=== PATIENT | male | born 1950 | race African-American/Black ===

== ENCOUNTER 2020-07-13 10:12 | Inpatient (IN) ==
[2020-07-13] MEDS ORDERED: Dexamethasone IV 4 MG/ML VIAL 1 ml VIAL IV SLOW PU ONE (10:43)
[2020-07-13] MEDS ORDERED: Famotidine IV 10 MG/ML 2 ml VIAL (20 mg) IV SLOW PU ONE (10:44)
[2020-07-13] MEDS ORDERED: diPHENhydraMINE IV 50 MG/ML 1 ml VIAL (BENADRYL) SLOW PUSH ONE (10:44)
[2020-07-13 11:13] LABS: ABS Basophils 0.1 10^3/ul (0-0.2); ABS Eosinophils 0.1 10^3/ul (0-0.6); ABS Lymphocytes 0.8 10^3/ul (1.0-4.8); ABS Monocytes 0.4 10^3/ul (0-0.8); ABS Neutrophils 4.2 10^3/ul (1.5-7.7); Eosinophil % 1.4 %; Hematocrit 36 % (42-52); Hemoglobin 11.4 g/dL (14.0-18.0); Lymphocyte % 14.3 %; Mean Corpuscular HGB Conc 32 g/dL (31-36); Mean Corpuscular Hemoglobin 21 pg (27-31); Mean Corpuscular Volume 67 fL (80-94); Mean Platelet Volume 8.5 fL (7.4-10.4); Nucleated Red Blood Cells % 0.1; Platelet Count 201 10^3/uL (150-450); Red Blood Count 5.44 10^6 /uL (4.18-5.48); Red Cell Distribution Width 19 % (10-15); White Blood Count 5.5 10^3/uL (3.5-10.8)
[2020-07-13 11:23] LABS: Albumin 4.4 g/dL (3.2-5.2); Albumin/Globulin Ratio 1.6 (1-3); Calcium 9.3 mg/dL (8.6-10.3); EGFR African American 94.8 (>60); EGFR Non-African American 78.4 (>60); Globulin 2.8 g/dL (2-4); Potassium 3.1 mmol/L (3.5-5.0); Total Bilirubin 0.6 mg/dL (0.2-1.0); Total Protein 7.2 g/dL (6.4-8.9)
[2020-07-13] MEDS: diPHENhydraMINE IV 50 MG/ML 1 ml VIAL (BENADRYL) IV SCH ×2 (12:34→17:05)
[2020-07-13] MEDS: methylPREDNISolone 125 mg 2 ML VIAL IV SCH ×2 (12:34→17:05)
[2020-07-13] MEDS: KCL 20 MEQ/100 ML IVPREMIX 20 MEQ/100 ML BAG IV SCH ×2 (12:40→15:12)
[2020-07-13] MEDS ORDERED: Heparin 5000 UNITS/ML 1 mL VIAL SUBCUT ONE (15:47)
[2020-07-13] MEDS: Heparin 5000 UNITS/ML 1 mL VIAL SUBCUT SCH ×2 (17:06→22:11)
[2020-07-13] MEDS ORDERED: Labetalol IV 5 MG/ML 20 ml VIAL IV PUSH PRN (19:54)
[2020-07-13] MEDS ORDERED: Metoprolol Tartrate 5 mg VIAL 5 ml VIAL (1 mg/ml) IV PRN ×2 (21:44→22:18)
[2020-07-13] MEDS: Famotidine IV 10 MG/ML 2 ml VIAL (20 mg) IV SLOW PU SCH (22:10)
[2020-07-14] MEDS: methylPREDNISolone 125 mg 2 ML VIAL IV SCH ×5 (00:33→23:53)
[2020-07-14] MEDS: diPHENhydraMINE IV 50 MG/ML 1 ml VIAL (BENADRYL) IV SCH ×3 (00:34→11:20)
[2020-07-14 02:24] LABS: Hepatitis C Antibody Negative (Negative)
[2020-07-14 05:08] LABS: Hematocrit 37 % (42-52); Hemoglobin 11.5 g/dL (14.0-18.0); Mean Corpuscular HGB Conc 31 g/dL (31-36); Mean Corpuscular Hemoglobin 21 pg (27-31); Mean Corpuscular Volume 67 fL (80-94); Mean Platelet Volume 8.8 fL (7.4-10.4); Nucleated Red Blood Cells % 0.4; Platelet Count 199 10^3/uL (150-450); Red Blood Count 5.46 10^6 /uL (4.18-5.48); Red Cell Distribution Width 19 % (10-15); White Blood Count 5.7 10^3/uL (3.5-10.8)
[2020-07-14 05:28] LABS: Calcium 8.9 mg/dL (8.6-10.3); EGFR Non-African American 79.3 (>60); Potassium 3.6 mmol/L (3.5-5.0)
[2020-07-14] MEDS ORDERED: Potassium Chlor 20 meq TAB.ER PO ONE (05:31)
[2020-07-14] MEDS: Heparin 5000 UNITS/ML 1 mL VIAL SUBCUT SCH ×3 (05:46→21:36)
[2020-07-14] MEDS: KCL 10 MEQ/50 ML IVPREMIX 10 MEQ/50 ML BAG IV SCH ×4 (05:46→13:15)
[2020-07-14 05:49] LABS: Polychromasia 1+; Tear Drop Cells 1+
[2020-07-14] MEDS: Famotidine IV 10 MG/ML 2 ml VIAL (20 mg) IV SLOW PU SCH ×2 (07:54→21:36)
[2020-07-14] MEDS ORDERED: KCL 10 MEQ/50 ML IVPREMIX 10 MEQ/50 ML BAG ONE (13:14)
[2020-07-14] MEDS ORDERED: diPHENhydraMINE IV 50 MG/ML 1 ml VIAL (BENADRYL) IV ONE (21:00)
[2020-07-15] MEDS: methylPREDNISolone 125 mg 2 ML VIAL IV SCH (05:00)
[2020-07-15] MEDS: Heparin 5000 UNITS/ML 1 mL VIAL SUBCUT SCH ×2 (05:01→14:24)
[2020-07-15 05:16] LABS: Hematocrit 37 % (42-52); Hemoglobin 11.4 g/dL (14.0-18.0); Mean Corpuscular HGB Conc 31 g/dL (31-36); Mean Corpuscular Hemoglobin 21 pg (27-31); Mean Corpuscular Volume 68 fL (80-94); Mean Platelet Volume 8.9 fL (7.4-10.4); Platelet Count 196 10^3/uL (150-450); Red Blood Count 5.36 10^6 /uL (4.18-5.48); Red Cell Distribution Width 19 % (10-15); White Blood Count 9.1 10^3/uL (3.5-10.8)
[2020-07-15 05:33] LABS: Calcium 8.8 mg/dL (8.6-10.3); EGFR African American 99.7 (>60); EGFR Non-African American 82.4 (>60); Potassium 4.3 mmol/L (3.5-5.0)
[2020-07-15 06:06] LABS: Microcytosis 2+; Polychromasia 1+
[2020-07-15 06:10] LABS: ABS Neutrophils 8.3 10^3/ul (1.5-7.7)
[2020-07-15] MEDS: Famotidine IV 10 MG/ML 2 ml VIAL (20 mg) IV SLOW PU SCH (09:24)
[2020-07-15 10:41] LABS: Magnesium 2.3 mg/dL (1.9-2.7); Phosphorus 2.7 mg/dL (2.5-5.0)
[2020-07-15 13:55] VITALS: BP 131/89
== END 2020-07-15 15:00 | disposition home or self-care (01) | DRG 916 ==
LOC: ED 10:12 → ICU 11:20
PROVIDERS: ADMIT Internal Medicine; ATTEND Internal Medicine